=== PATIENT | female | born 1960 | race Caucasian/White ===

== ENCOUNTER 2016-03-01 08:03 | Outpatient (CLI) | payer OTHER | END 2016-03-01 08:04 | disposition home or self-care (01) | DX: Z13.220 Encounter for screening for lipoid disorders (principal); R73.9 Hyperglycemia, unspecified ==

== ENCOUNTER 2016-03-08 12:37 | Outpatient (CLI) | payer OTHER, BC | END 2016-03-08 12:38 | disposition home or self-care (01) | DX: R73.9 Hyperglycemia, unspecified (principal); Z13.220 Encounter for screening for lipoid disorders ==

== ENCOUNTER 2016-07-19 16:05 | Outpatient (CLI) | payer BC, OTHER ==
[2016-07-20 10:29] LABS: BASOPHILS # (AUTO) 0.1 10^3/uL (0.0-0.1); BASOPHILS % (AUTO) 0.7 %; EOSINOPHILS # (AUTO) 0.3 10^3/uL (0.0-0.7); EOSINOPHILS % (AUTO) 4.5 %; HCT - HEMATOCRIT 41.3 % (37.0-47.0); HGB - HEMOGLOBIN 13.7 g/dL (12.0-16.0); LYMPHOCYTES # (AUTO) 1.1 10^3/uL (1.5-3.5); LYMPHOCYTES % (AUTO) 15.3 %; MEAN CORPUSCULAR HEMOGLOBIN 30.8 pg (27.0-31.0); MEAN CORPUSCULAR HGB CONC 33.2 g/dL (32.0-36.0); MEAN CORPUSCULAR VOLUME 92.6 fL (81.0-99.0); MEAN PLATELET VOLUME 9.7 fL (7.9-10.8); MONOCYTES # (AUTO) 0.6 10^3/uL (0.0-1.0); MONOCYTES % (AUTO) 8.4 %; NEUTROPHILS # (AUTO) 5.1 10^3/uL (1.5-6.6); NEUTROPHILS % (AUTO) 71.1 %; NUCLEATED RED BLOOD CELLS AUTO 0.1 /100WBC; RED BLOOD COUNT 4.46 10^6/uL (4.20-5.40); RED CELL DISTRIBUTION WIDTH 14.1 % (12.0-15.0); UNCORRECTED WHITE BLOOD COUNT 7.2 x10^3/uL; WHITE BLOOD COUNT 7.2 x10^3/uL (4.8-10.8)
[2016-07-20 10:44] LABS: BILIRUBIN,DIRECT 0.1 mg/dL (0.1-0.5); BILIRUBIN,TOTAL 0.7 mg/dL (0.2-1.0); CALCIUM 9.5 mg/dL (8.5-10.3); CREATININE 0.6 mg/dL (0.4-1.0); POTASSIUM 4.1 mmol/L (3.5-5.0); TOTAL PROTEIN 8.1 g/dL (6.7-8.2)
== END 2016-07-19 16:06 | disposition home or self-care (01) ==
LOC: LAB.S 16:05
PROVIDERS: ATTEND Podiatrist
DX: B35.1 Tinea unguium (principal)
CPT/HCPCS: 36415; 80048; 80076; 85025

== ENCOUNTER 2016-09-15 14:41 | Outpatient (CLI) | payer OTHER | END 2016-09-15 14:42 | disposition home or self-care (01) | LOC: LAB 14:41 | DX: Z01.89 Encounter for other specified special examinations (principal) | CPT/HCPCS: 36415 ==

== ENCOUNTER 2017-02-28 08:00 | Outpatient (CLI) | payer BC ==
[2017-02-28 17:43] LABS: BASOPHILS # (AUTO) 0.1 10^3/uL (0.0-0.1); BASOPHILS % (AUTO) 0.9 %; EOSINOPHILS # (AUTO) 0.2 10^3/uL (0.0-0.7); EOSINOPHILS % (AUTO) 2.6 %; HGB - HEMOGLOBIN 14.2 g/dL (12.0-16.0); LYMPHOCYTES # (AUTO) 1.1 10^3/uL (1.5-3.5); LYMPHOCYTES % (AUTO) 13.5 %; MEAN CORPUSCULAR HEMOGLOBIN 29.8 pg (27.0-31.0); MEAN CORPUSCULAR HGB CONC 32.8 g/dL (32.0-36.0); MEAN CORPUSCULAR VOLUME 90.8 fL (81.0-99.0); MEAN PLATELET VOLUME 9.1 fL (7.9-10.8); MONOCYTES # (AUTO) 0.6 10^3/uL (0.0-1.0); MONOCYTES % (AUTO) 7.5 %; NEUTROPHILS % (AUTO) 75.5 %; PLT - PLATELET COUNT 304 10^3/uL (130-450); RED BLOOD COUNT 4.75 10^6/uL (4.20-5.40); RED CELL DISTRIBUTION WIDTH 12.7 % (12.0-15.0); WHITE BLOOD COUNT 7.9 x10^3/uL (4.8-10.8)
[2017-02-28 18:35] LABS: ALBUMIN 4.4 g/dL (3.2-5.5); BILIRUBIN,DIRECT 0.1 mg/dL (0.1-0.5); BILIRUBIN,TOTAL 0.6 mg/dL (0.2-1.0); TOTAL PROTEIN 8.3 g/dL (6.7-8.2)
== END 2017-02-28 23:59 | disposition home or self-care (01) ==
LOC: LAB.S 08:00
PROVIDERS: ATTEND Psychiatry & Neurology Neurology
DX: G35 Multiple sclerosis (principal); Z79.899 Other long term (current) drug therapy
CPT/HCPCS: 36415; 80076; 81599; 85025; 86361

== ENCOUNTER 2017-04-25 07:05 | Day surgery (SDC) | payer OTHER, BC ==
[2017-04-25] MEDS ORDERED: LACTATED RINGERS 1,000 ML IV ONE (07:50)
[2017-04-25] MEDS ORDERED: MIDAZOLAM 2 MG/2 ML VIAL IVP ONE (08:05)
[2017-04-25] MEDS ORDERED: fentaNYL 100 MCG/2 ML VIAL IVP ONE (08:05)
[2017-04-25 10:01] VITALS: BP 152/82
== END 2017-04-25 07:06 | disposition home or self-care (01) ==
LOC: SDS 07:05
PROVIDERS: ATTEND Surgery
PROC: 0DBH8ZZ Excision of Cecum, Via Natural or Artificial Opening Endoscopic (ICD-10-PCS; principal; 2017-04-25 08:15)
DX: R19.5 Other fecal abnormalities (principal); D12.0 Benign neoplasm of cecum; K57.30 Diverticulosis of large intestine without perforation or abscess without bleeding; K64.8 Other hemorrhoids; I10 Essential (primary) hypertension; G35 Multiple sclerosis; K21.9 Gastro-esophageal reflux disease without esophagitis; R26.2 Difficulty in walking, not elsewhere classified; E66.9 Obesity, unspecified; Z68.38 Body mass index [BMI] 38.0-38.9, adult
CPT/HCPCS: 45385; J7120

== ENCOUNTER 2017-05-09 08:24 | Emergency (ER) | payer OTHER, BC ==
--- NOTE | 2017-05-09 09:33 | ED Physician Documentation ---
PD HPI [facility]AL [facility]URO - Stated complaint Stated Complaint: UNABLE TO WALK - Chief complaint Chief Complaint: General - History obtained from History obtained from: Patient - History of Present Illness Timing - onset: Today (awoke with significant weakness in both legs yet no weakness in arms and face.) Timing - duration: Hours (felt a little bit of leg weakness last evening. Much more prominent this morning when awoke. Has not had any weakness to this degree. ) Timing - details: Abrupt onset, Still present Time of symptom onset unknown: Time of onset unknown Severity of deficit: Moderate (unable to walk on her legs; is using wheelchair she has to get around this morning, with having to be pushed around.) Weakness: Leg, Foot, Left Numbness: Leg, Foot, Right Associated symptoms: No: Headache, Nausea / vomiting, Neck pain, Back pain Review of Systems Constitutional: denies: Fever, Chills, Myalgias Ears: denies: Drainage/discharge PD PAST MEDICAL HISTORY - Past Medical History Cardiovascular: Hypertension Respiratory: None Neuro: Multiple sclerosis (usually with some mild leg weakness. Today with significant leg weakness both legs and ankles. ) Endocrine/Autoimmune: None GI: None : Incontinence HEENT: None Psych: None Musculoskeletal: Other Derm: Eczema - Past Surgical History /CHIP PERSON: Hysterectomy - Present Medications Home Medications: Ambulatory Orders Medication Instructions Recorded Confirmed Cranberry Fruit Extract [Cranberry] 300 mg ORAL BID 04/25/17 04/25/17 Dimethyl Fumarate [Tecfidera] 240 mg ORAL DAILY 04/25/17 04/25/17 Losartan Potassium 50 mg ORAL BID 04/25/17 04/25/17 Oxybutynin Chloride 5 mg ORAL TID 04/25/17 04/25/17 - Allergies Allergies/Adverse Reactions: Allergies Allergy/AdvReac Type Severity Reaction Status Date / Time oxymetazoline AdvReac Nausea Verified 04/25/17 07:55 [From Afrin (oxymetazoline)] - Immunizations Immunizations are current?: Yes - POLST POLST Status: DNR PD ED PE NORMAL - Vitals Vital signs reviewed: Yes - General General: Alert and oriented X 3, No acute distress, Well developed/nourished - HEENT HEENT: Ears normal, Pharynx benign - Neck Neck: Supple, no meningeal sign, No adenopathy - Cardiac Cardiac: RRR, No murmur - Respiratory Respiratory: Clear bilaterally - Abdomen Abdomen: Normal bowel sounds, Soft, Non tender, Non distended - Female Female : Deferred NIHSS - Level of Consciousness Level of consciousness: (0) Alert, Keenly responsive LOC Questions: (0) Answers both Q's correct LOC Commands: (0) Performs both correctly - Gaze Best Gaze: (0) Normal - Visual Visual: (0) No loss - Facial Palsy Facial Palsy: (0) Normal, symmetrical movement - Motor Arms (both separate) Motor Arm (right): (0) No drift Motor Arm (left): (0) No drift - Motor Legs (both separate) Motor Leg (right): (2) Some effort against gravity Motor Leg (left): (2) Some effort against gravity - Best Language Best Language: (0) No aphasia - Dysarthria Dysarthria: (0) Normal - Extinction and Inattention (formally neg Extinction and inattention: (2) Profound treva-inattention or extinction to more than one modality Results - Vitals Vitals: Vital Signs - 24 hr 05/09/17 05/09/17 08:41 17:32 Temperature 36.0 C L 36.8 C Heart Rate 74 82 Respiratory 16 18 Rate Blood Pressure 183/106 H 150/76 H O2 Saturation 98 97 Oxygen O2 Source Room air - Labs Labs: Laboratory Tests 05/09/17 05/09/17 05/09/17 10:49 10:49 10:49 WBC 7.7 RBC 4.65 Hgb 14.1 Hct 42.1 MCV 90.6 MCH 30.3 MCHC 33.5 RDW 13.2 Plt Count 261 MPV 8.2 Neut # 5.7 Lymph # 1.1 L Clare # 0.7 Eos # 0.2 Baso # 0.1 Absolute Nucleated RBC 0.00 Nucleated RBC % 0.0 ESR 29 Sodium 136 Potassium 4.2 Chloride 102 Carbon Dioxide 27 Anion Gap 7.0 BUN 20 Creatinine 0.6 Estimated GFR (MDRD) 102 Glucose 119 H Calcium 9.5 Magnesium 1.9 Total Bilirubin 0.7 AST 24 ALT 22 Alkaline Phosphatase 71 Total Protein 7.8 Albumin 4.0 Globulin 3.8 Albumin/Globulin Ratio 1.1 Lipase 22 TSH 05/09/17 10:49 WBC RBC Hgb Hct MCV MCH MCHC RDW Plt Count MPV Neut # Lymph # Clare # Eos # Baso # Absolute Nucleated RBC Nucleated RBC % ESR Sodium Potassium Chloride Carbon Dioxide Anion Gap BUN Creatinine Estimated GFR (MDRD) Glucose Calcium Magnesium Total Bilirubin AST ALT Alkaline Phosphatase Total Protein Albumin Globulin Albumin/Globulin Ratio Lipase TSH 2.77 Departure - Departure Disposition: 01 Home, Self Care Clinical Impression: Weakness of both legs, Multiple sclerosis exacerbation Condition: Stable Record reviewed to determine appropriate education?: Yes Follow-Up: Vilma Badillo PA [Primary Care Provider] - Lola Lee MD [Physician No Access] - Comments: Contact Dr. Lee's office regarding further doses of steroids. Continue your other usual medications. Return if worsening symptoms or problems. Discharge Date/Time: 05/09/17 18:00
[2017-05-09] MEDS ORDERED: SODIUM CHLORIDE 0.9% 1,000 ML IV ONE (10:18)
[2017-05-09] MEDS ORDERED: methylPREDNISolone SUCCINATE 1,000 MG in SODIUM CHLORIDE 0.9% 250 ML IV STA ×2 (10:18→15:01)
[2017-05-09] MEDS ORDERED: GADOBUTROL 15 MMOL/15 ML VIAL ONE (10:45)
[2017-05-09 10:55] LABS: BASOPHILS # (AUTO) 0.1 10^3/uL (0.0-0.1); BASOPHILS % (AUTO) 0.7 %; EOSINOPHILS # (AUTO) 0.2 10^3/uL (0.0-0.7); EOSINOPHILS % (AUTO) 2.8 %; HGB - HEMOGLOBIN 14.1 g/dL (12.0-16.0); LYMPHOCYTES # (AUTO) 1.1 10^3/uL (1.5-3.5); LYMPHOCYTES % (AUTO) 13.8 %; MEAN CORPUSCULAR HEMOGLOBIN 30.3 pg (27.0-31.0); MEAN CORPUSCULAR HGB CONC 33.5 g/dL (32.0-36.0); MEAN CORPUSCULAR VOLUME 90.6 fL (81.0-99.0); MEAN PLATELET VOLUME 8.2 fL (7.9-10.8); MONOCYTES # (AUTO) 0.7 10^3/uL (0.0-1.0); MONOCYTES % (AUTO) 9.3 %; NEUTROPHILS # (AUTO) 5.7 10^3/uL (1.5-6.6); NEUTROPHILS % (AUTO) 73.4 %; PLT - PLATELET COUNT 261 10^3/uL (130-450); RED BLOOD COUNT 4.65 10^6/uL (4.20-5.40); RED CELL DISTRIBUTION WIDTH 13.2 % (12.0-15.0); WHITE BLOOD COUNT 7.7 x10^3/uL (4.8-10.8)
[2017-05-09 11:12] LABS: ALBUMIN/GLOBULIN RATIO 1.1 (1.0-2.2); BILIRUBIN,TOTAL 0.7 mg/dL (0.2-1.0); CALCIUM 9.5 mg/dL (8.5-10.3); CREATININE 0.6 mg/dL (0.4-1.0); MAGNESIUM 1.9 mg/dL (1.7-2.8); TOTAL PROTEIN 7.8 g/dL (6.7-8.2)
[2017-05-09] MEDS ORDERED: GADOBUTROL 15 MMOL/15 ML VIAL IVP ONE (12:34)
--- NOTE | 2017-05-09 13:37 | MRI Preliminary Report ---
Exam: MRI BRAIN W/WO IMPRESSION: 1. Multiple small new T2 hyperintensities are seen above and below the tentorium consistent with prog ression of demyelinating disease. PML to explain these new focal lesions is less likely. 2. No abnormal enhancement. 3. Findings consistent with demyelinating disease otherwise appear stable. [facility] SITE ID: [id number]
--- NOTE | 2017-05-09 13:46 | MRI Report ---
EXAM: MRI BRAIN WITHOUT AND WITH CONTRAST EXAM DATE: 05/09/2017 12:57 PM. CLINICAL HISTORY: Multiple sclerosis, imaging follow-up on an emergent basis in the Emergency Departm ent. Patient unable to walk. COMPARISON: 02/16/14. TECHNIQUE: Multiplanar, multisequence T1-weighted and fluid-sensitive MR sequences of the brain were performed. Sequences optimized for white matter evaluation. Other: None. IV Contrast: Without and wit h 12 mL Gadavist. FINDINGS: Brain Volume: Stable. Parenchyma: No acute stroke or hemorrhage. No evidence for intracranial enhancing or space occupying mass. New focal 3 mm T2 hyperintense lesion in the left posterior brainstem at the junction of the artie and midbrain. New focal 2 mm T2 hyperintense lesion to the left of midline at the pontomedullary junction just ante rior to the 3 mm lesion described above. In the anterior left frontal lobe deep white matter there is a cluster of abnormal nodular T2 hyperin tense lesions. Similar findings were present previously but are now more numerous; 4 or 5 new punctat e 1-2 mm T2 hyperintense lesions are present, reference images 6 and 7 from series 801. Multifocal supratentorial white matter disease otherwise appears stable. No white matter enhancement is seen to suggest active inflammation. No abnormal enhancement. Ventricles/Cisterns: No hydrocephalus. No abnormal extra-axial fluid collection or hemorrhage. Vasculature: Normal signal flow void is seen in the major arterial structures at the skull base. The dural sinuses are patent and enhance normally. Sinuses: Minimal paranasal sinus mucosal thickening. Bones: No focal pathologic appearing marrow signal changes. Other: Again seen is a focal plaque-like T2 hyperintensity in the upper brainstem at the C1 level als o consistent with demyelinating disease. IMPRESSION: 1. Multiple small new T2 hyperintensities are seen above and below the tentorium consistent with prog ression of demyelinating disease. PML to explain these new focal lesions is less likely. 2. No abnormal enhancement. 3. Findings consistent with demyelinating disease otherwise appear stable. [facility] Referring Provider Line: [phone] SITE ID: [id number]
[2017-05-09 17:33] VITALS: BP 150/76
== END 2017-05-09 18:00 | disposition home or self-care (01) ==
LOC: ED 08:24
DX: G35 Multiple sclerosis (principal); R53.1 Weakness; I10 Essential (primary) hypertension; Z66 Do not resuscitate
CPT/HCPCS: 70553; 80053; 83690; 83735; 84443; 85025; 85651; 96361; 96365; 96375; 99283; 99284; A9585; 36415

== ENCOUNTER 2017-05-28 08:34 | Outpatient (CLI) | payer OTHER, BC | END 2017-05-28 08:35 | disposition EMS.NT | LOC: EMS 08:34 | PROVIDERS: ATTEND Surgery | DX: R53.1 Weakness (principal); W18.39XA Other fall on same level, initial encounter; Y92.002 Bathroom of unspecified non-institutional (private) residence as the place of occurrence of the external cause ==